=== PATIENT | female | born 1960 | race Caucasian/White ===

== ENCOUNTER 2018-08-31 11:23 | Outpatient (CLI) | payer MEDICARE, MEDICAID ==
[~2018-08-31] VITALS: Ht 170.2 cm; Wt 67.8 kg
[2018-08-31 11:45] VITALS: BP 110/62
[2018-08-31 12:28] LABS: BASOPHILS % (AUTO) 0 % (0-10); EOSINOPHILS # (AUTO) 0.1 10^3/uL (0.0-0.3); EOSINOPHILS % (AUTO) 1 % (0-10); HEMATOCRIT 39 % (35-52); HEMOGLOBIN 13.2 G/DL (11.5-16.0); LYMPHOCYTES # (AUTO) 1.9 X 10^3 (1.0-4.0); LYMPHOCYTES % (AUTO) 25 % (12-44); MEAN CORPUSCULAR HEMOGLOBIN 29 PG (25-34); MEAN CORPUSCULAR HGB CONC 34 G/DL (32-36); MEAN CORPUSCULAR VOLUME 85 FL (80-99); MEAN PLATELET VOLUME 9.1 FL (7.4-10.4); MONOCYTES # (AUTO) 0.5 X 10^3 (0.0-1.0); MONOCYTES % (AUTO) 6 % (0-12); NEUTROPHILS # (AUTO) 5.3 X 10^3 (1.8-7.8); NEUTROPHILS % (AUTO) 68 % (42-75); PLATELET COUNT 312 10^3/uL (130-400); RED CELL DISTRIBUTION WIDTH 17.3 % (10.0-14.5); WHITE BLOOD COUNT 7.8 10^3/uL (4.3-11.0)
[2018-08-31 12:48] LABS: BUN/CREATININE RATIO 10; CALCIUM 9.3 MG/DL (8.5-10.1); CARBON DIOXIDE 27 MMOL/L (21-32); CHLORIDE 92 MMOL/L (98-107); CREATININE SERUM 0.72 MG/DL (0.60-1.30); GFR ESTIMATED > 60; GLUCOSE 97 MG/DL (70-105); POTASSIUM 4.3 MMOL/L (3.6-5.0); SODIUM 128 MMOL/L (135-145)
[2018-08-31] MEDS ORDERED: LEVO112T55 PO (15:01)
[2018-08-31] MEDS ORDERED: VERA80TA2 PO (15:01)
[2018-08-31] MEDS ORDERED: DOCU-143 PO (15:01)
[2018-08-31] MEDS ORDERED: MULT-166 PO (15:01)
[2018-08-31] MEDS ORDERED: OMEP40CA36 PO (15:01)
[2018-08-31] MEDS ORDERED: FLUT16SP22 NS (15:01)
[2018-08-31] MEDS ORDERED: TOLT4CAP13 PO (15:01)
[2018-08-31] MEDS ORDERED: BUSP10TA95 PO (15:01)
[2018-08-31] MEDS ORDERED: OMEP20CA12 PO (15:01)
[2018-08-31] MEDS ORDERED: BACL20TA PO (15:01)
[2018-08-31] MEDS ORDERED: ALBU2.5V4 NEB (15:19)
[2018-08-31] MEDS ORDERED: TRAM50TA2 PO (15:19)
[2018-08-31] MEDS ORDERED: ALEN70TA5 PO (15:19)
[2018-08-31] MEDS ORDERED: CLOZ100T7 PO ×2 (15:19)
[2018-08-31] MEDS ORDERED: CYAN5000 PO (15:19)
[2018-08-31] MEDS ORDERED: ACET-2267 PO (15:19)
[2018-08-31] MEDS ORDERED: POLY15DR14 OU (15:19)
[2018-08-31] MEDS ORDERED: CETI10TA17 PO (15:19)
[2018-08-31] MEDS ORDERED: METO5TAB2 PO (15:19)
[2018-08-31] MEDS ORDERED: MELO15TA39 PO (15:19)
[2018-08-31] MEDS ORDERED: SENN-109 PO (15:19)
[2018-08-31] MEDS ORDERED: CITA10TA7 PO (15:19)
[2018-08-31] MEDS ORDERED: LINA72CA PO (15:19)
[2018-08-31] MEDS ORDERED: PREG150C PO (15:19)
[2018-08-31] MEDS ORDERED: MIRA50TA PO (15:19)
[2018-08-31] MEDS ORDERED: RT-ALBUINH INH (15:19)
[2018-09-02] MEDS ORDERED: HYDR-3584 PO (13:36)
[2018-09-02] MEDS ORDERED: NA P133E22 RC (13:36)
[2018-09-02] MEDS ORDERED: D-ME118S7 PO (14:40)
[2018-09-02] MEDS ORDERED: SIME125T59 PO (14:40)
[2018-09-02] MEDS ORDERED: MUPI15CR11 TP (14:40)
[2018-09-02] MEDS ORDERED: MAGN296S50 PO (14:40)
== END 2018-08-31 14:00 | disposition home or self-care (01) ==
LOC: PREOP 11:23
PROVIDERS: ATTEND Orthopaedic Surgery
DX: Z01.812 Encounter for preprocedural laboratory examination (principal); M48.02 Spinal stenosis, cervical region
CPT/HCPCS: 36415; 80048; 85025; 86850; 86900; 86901; 87081

== ENCOUNTER 2018-09-06 07:04 | Inpatient (IN) | payer MEDICARE, MEDICAID ==
--- NOTE | 2018-09-01 13:06 | NUR ---
PATIENT BROUGHT IN PRINTED LIST OF REFILLS SINCE 05-24-18 FROM [employer] IN [place]. I TRIED TO CALL HER TO GO OVER THAT LIST AND VERIFY WHAT SHE TAKES AND HOW SHE TAKES THEM HOWEVER I TALKED TO HER TWICE AND BOTH TIMES SHE DID NOT HAVE TIME TO GO OVER IT WITH ME. I ENTERED WHAT HAS BEEN FILLED RECENTLY BUT HAVE NOT REVIEWED IT UNTIL I CAN VERIFY WITH PATIENT. SHE STATES SHE WILL CALL ME IN THE MORNING OF 09-01-18. I WILL UPDATE WHEN I AM ABLE TO SPEAK WITH HER. Addendum: 09/02/18 at 1350 by TK [facility]AV[facility] PATIENT HAS NOT CALLED ME BACK. I AM LEAVING ALL THE MEDICATIONS ENTERED ONTO THE MED REC FROM THE LIST FROM [employer], DATE RANGE 05-24-18 TO 08-30-18. [employer] [facility] FILLED: 08-24-18 FLEET ENEMA PRN 08-24-18 ARTIFICIAL TEARS ONE OR TWO DROPS IN AFFECTED EYE 08-24-18 FLONASE 1 SPRAY EACH NOSTRIL DAILY #16 08-24-18 TYLENOL 500MG 2 Q8H PRN #120 08-19-18 CLOZAPINE 100MG 1AM AND 3 HS #120 08-16-18 VENTOLIN 2 PUFFS Q6H PRN 08-06-18 TOLTERODINE TARTRATE ER 4MG DAILY #30 08-04-18 COLACE 100MG HS #30 08-03-18 HYDROXYZINE HCL 10MG TID PRN ANXIETY #30 08-03-18 OMEPRAZOLE 40MG DAILY #30 08-03-18 MTV W/ MINERALS DAILY #30 08-03-18 SENNA DOCUSATE 8.6-50 3 DAILY #90 08-03-18 ALENDRONATE 70MG WEEKLY #4 08-03-18 METOCLOPRAMIDE 5MG 1 ACHS #120 08-03-18 LEVOTHYROXINE 112MG DAILY #30 08-03-18 BUSPIRONE 10MG TID #90 08-03-18 CITALOPRAM 10MG DAILY #30 08-03-18 VITAMIN B12 5000MCG DAILY #30 08-03-18 CETIRIZINE 10MG DAILY #30 08-03-18 VERAPAMIL 80MG 1/2 DAILY #15 08-03-18 LINZESS 72MCG DAILY #30 08-03-18 BACLOFEN 20MG TID #90 08-03-18 MYRBETRIQ 50MG DAILY #30 08-03-18 MELOXICAM 15MG DAILY #30 08-02-18 TRAMADOL 50MG HS #08-02-18 LYRICA 150MG BID #60 06-02-18 ALBUTEROL 0.083% Q4H PRN Addendum: 09/02/18 at 1452 by TK [facility]AV[facility] PATIENT CALLED BACK AT THIS TIME, WE WENT OVER THE LIST FROM PANIAGUA JOSE DAVID AND SHE VERIFIED HOW SHE TAKES THEM. I ADDED THE FOLLOWING MEDICATIONS THAT SHE STATES SHE DOES HAVE ON HAND IF NEEDED: 08-04-18 MUPIROCIN OINT APPLY BID TO EAR (STATES SHE APPLY NASALLY) 06-11-18 PROMETHAZINE DM 6.25-15MG/5ML 5ML Q6H PRN #180 SHE STATES HER LYRICA IS PRESCRIBED BID HOWEVER SHE HAS DECREASED IT TO ONE AT HS ONLY. SHE TAKES HER TRAMADOL ONCE DAILY NEEDED BUT NOT NECESSARILY AT HS. SHE TAKES HER ALENDRONATE ON FRIDAYS. SHE USES MAG CITRATE AND GAS X OTC PRN
[~2018-09-06] VITALS: Ht 170.2 cm; Wt 67.8 kg
[2018-09-06] VITALS (11 sets, daily range): BP systolic 99–157; BP diastolic 55–83
[~2018-09-06 07:04] MED LIST: ACET-2267 PO; ALBU2.5V4 NEB; ALEN70TA5 PO; BACL20TA PO; BUSP10TA95 PO; CETI10TA17 PO; CITA10TA7 PO; CLOZ100T7 PO; CYAN5000 PO; D-ME118S7 PO; DOCU-143 PO; FLUT16SP22 NS; HYDR-3584 PO; LEVO112T55 PO; LINA72CA PO; MAGN296S50 PO; MELO15TA39 PO; METO5TAB2 PO; MIRA50TA PO; MULT-166 PO; MUPI15CR11 TP; NA P133E22 RC; OMEP20CA12 PO; OMEP40CA36 PO; POLY15DR14 OU; PREG150C PO; RT-ALBUINH INH; SENN-109 PO; SIME125T59 PO; TOLT4CAP13 PO; TRAM50TA2 PO; VERA80TA2 PO
[2018-09-06] MEDS: LACTATED RINGERS 1,000 ML IV PRN ×2 (08:05→10:16)
[2018-09-06] MEDS ORDERED: ceFAZolin 2 GM/50 ML NS 50 ML IV ONE (08:15)
[2018-09-06] MEDS ORDERED: CATHETER FLUSH 10 ML SYR IV PRN (08:15)
[2018-09-06] MEDS ORDERED: BACITRACIN 100,000 UNIT/NS 1000 ML POUR BOTTLE IR ONE ×2 (08:15)
[2018-09-06] MEDS ORDERED: THROMBIN 5,000 UNIT (RECOTHROM) VIAL ONE (08:33)
[2018-09-06] MEDS ORDERED: proPOfol 200 MG/20 ML (DIPRIVAN) VIAL IV ONE ×3 (08:58→10:23)
[2018-09-06] MEDS ORDERED: SUCCINYLCHOLINE INJ 100 MG/5 ML SYR ONE (08:58)
[2018-09-06] MEDS ORDERED: LIDOCAINE PF 2% 5 ML (XYLOCAINE) VIAL ONE (08:58)
[2018-09-06] MEDS ORDERED: SEVOFLURANE (ULTANE) 15 ML INHAL SOLN ONE ×3 (08:58→11:09)
[2018-09-06] MEDS ORDERED: MIDAZOLAM 2 MG/2 ML (VERSED) VIAL ONE (08:59)
[2018-09-06] MEDS ORDERED: fentaNYL INJECTION 100 MCG/2 ML AMP ONE (08:59)
[2018-09-06] MEDS ORDERED: DEXAMETHASONE 10 MG/ML (DECADRON) 1 ML VIAL ONE (09:01)
[2018-09-06] MEDS ORDERED: ONDANSETRON 4 MG/2 ML (SDV) Z0FRAN ONE (09:01)
--- NOTE | 2018-09-06 09:23 | NUR ---
Clammer support provided prior to procedure. pt smiled and welcomed chaplains' presence, stating "I think it is wonderful that they offer this service here." She welcomed prayer; offered prayer for healing, peace, and God's protection. Pt is non-yarsanism Oriental Orthodox.
[2018-09-06] MEDS ORDERED: ROCURONIUM 10 MG/ML 5 ML SYRINGE IV ONE (09:32)
[2018-09-06] MEDS ORDERED: GLYCOPYRROLATE 0.2 MG/ML (ROBINUL) 2 ML VIAL ONE ×2 (09:32→10:48)
[2018-09-06] MEDS ORDERED: PHENYLEPHRINE 100 MCG/ML 10 ML (ANESTHESIA) SYR ONE (10:24)
[2018-09-06] MEDS ORDERED: HYDROmorphone 2 MG/ML VIAL (DILAUDID) ONE ×2 (10:43→12:02)
[2018-09-06] MEDS ORDERED: RT-ALBUTEROL SULF 2.5 MG/3 ML PRE-MIX VIAL INH PRN (11:30)
[2018-09-06] MEDS ORDERED: RT-ALBUTEROL SULF 2.5 MG/3 ML PRE-MIX VIAL IH PRN (11:30)
[2018-09-06] MEDS ORDERED: ACETAMINOPHEN 325 MG TABLET PO PRN (11:45)
[2018-09-06] MEDS ORDERED: morphine INJ 10 MG/ML 1ML (SYR OR VIAL) IVP PRN (11:45)
[2018-09-06] MEDS ORDERED: ONDANSETRON 4 MG (ZOFRAN) ORAL DISSOLVE TAB PO PRN (11:45)
[2018-09-06] MEDS ORDERED: ONDANSETRON 4 MG/2 ML (SDV) Z0FRAN IV PRN (11:45)
--- NOTE | 2018-09-06 12:18 | Diagnostic Imaging Report ---
INDICATION: Fluoroscopy during cervical spine surgery. FINDINGS: Fluoroscopy was provided in the OR during cervical spine surgery. 8 seconds of fluoroscopy was utilized. Images demonstrate postop changes of ACDF at the C5 through C7 levels. The alignment is normal. IMPRESSION: Fluoroscopy during ACDF. Dictated by: Dictated on workstation # [id number]
[2018-09-06] MEDS ORDERED: HYDROmorphone 2 MG/ML VIAL (DILAUDID) IV ONE (12:30)
[2018-09-06] MEDS ORDERED: ONDANSETRON 4 MG/2 ML (SDV) Z0FRAN IVP PRN (12:30)
[2018-09-06] MEDS ORDERED: hydrOXYzine (ATARAX) 10 MG TAB PO PRN (14:45)
[2018-09-06] MEDS ORDERED: ARTIFICAL TEARS 0.4 ML UNIT DOSE (REFRESH PLUS) OU PRN (15:00)
[2018-09-06] MEDS ORDERED: SIMETHICONE 80 MG (MYLICON) CHEW PO PRN (15:00)
[2018-09-06] MEDS: oxyCODONE/APAP 5/325MG (PERCOCET 5) TABLET PO PRN (15:15)
[2018-09-06] MEDS: busPIRone 10 MG (BUSPAR) TAB PO SCH ×2 (15:20→21:14)
[2018-09-06] MEDS: ceFAZolin INJECTION 1,000 MG in WATER (STERILE) FOR INJECTION 10 ML IV SCH ×3 (15:53→23:29)
[2018-09-06] MEDS ORDERED: METOCLOPRAMIDE 5 MG (REGLAN) TAB PO SCH (16:00)
[2018-09-06] MEDS ORDERED: METOCLOPRAMIDE 5 MG (REGLAN) TAB PO PRN (16:45)
[2018-09-06] MEDS ORDERED: CLOZAPINE 300 MG PO SCH (21:00)
[2018-09-06] MEDS: cloZAPine 100 MG (CLOZARIL) TAB PO SCH (21:14)
[2018-09-06] MEDS: DOCUSATE SODIUM 100 MG (COLACE) CAP PO SCH (21:14)
[2018-09-06] MEDS: PREGABALIN 75 MG (LYRICA) CAP PO SCH (21:14)
[2018-09-06] MEDS: BACLOFEN 10 MG (LIORESAL) TAB PO SCH (21:15)
--- NOTE | 2018-09-06 21:36 | OPERATIVE REPORT ---
DATE OF SERVICE: 09/06/2018 SURGEON: Nikki Ragland DO SLP TEACHER: LAUREANO Kumar. This is a medically necessary procedure. The metallurgical laboratory assistant was necessary for retraction of vital neurovascular structures. Without an metallurgical laboratory assistant, the procedure would not be possible. PREOPERATIVE DIAGNOSES: 1. Cervical radiculopathy. 2. Cervical spinal stenosis (bony, foraminal). POSTOPERATIVE DIAGNOSES: 1. Cervical radiculopathy. 2. Cervical spinal stenosis (bony, foraminal). PROCEDURE PERFORMED: 1. C5-C6, C6-C7 anterior cervical diskectomy and fusion. 2. Application of titanium interbody cage, C5-C6, C6-C7. 3. Application of anterior instrumentation, C5-C6, C6-C7. 4. Use of human Allograft for spine. 5. Use of local bone autograft. COMPLICATIONS: None. SPECIMEN SENT: None. DRAIN PLACED: Augusto-Seaman. ANESTHESIA: General endotracheal tube anesthesia with local anesthetic. HISTORY OF PRESENT ILLNESS: The patient is a very pleasant 58-year-old female who presented to me with severe radiating Cervical radiculopathy pain. She had an MRI demonstrating spinal stenosis at C5-C6 and C6-C7 with bilateral neural foraminal stenosis, she did wish to proceed with surgery as she had failed all conservative measures. OPERATION: The patient was identified by name on wrist band in the preoperative holding area. Her operative site was signed, consent was signed. SCDs were placed. Neuro monitoring was hooked up and antibiotics were started. She was taken to the operating room theater and placed under general endotracheal tube anesthesia and then transferred to the operating room table in the supine position. She was prepped and draped in the usual sterile fashion. Formal timeout was conducted. An incision was then made over the medial aspect of the left sternocleidomastoid. I proceeded with a standard anterior cervical approach to the cervical spine. I placed Marion pin distraction across C5-C6 and placed a self-retaining retractor. I verified my level under lateral x-ray. I performed an annulotomy followed by complete diskectomy. I took down the posterior longitudinal ligament and I did bilateral foraminotomies. I then sized and chose the appropriate titanium interbody cage packed with human allograft and local bone autograft and I seated it in the midline position. I then repeated this diskectomy at C6-C7. I now had two interbodies in place. I obtained the appropriate length plate placed in the midline position. I placed screws through the plate into the body of C5, C6 and then C7. I finally tightened all screws. AP and lateral x-ray demonstrated good position of the hardware, placed a Augusto-Seaman drain alongside the plate. I irrigated the wound, maintained hemostasis. Obtained final x-rays and closed the wound utilizing 3-0 Vicryl followed by running 3-0 subcuticular stitch. I applied dressings and took the patient in the supine position to the PACU where she awoke without incident. She tolerated the procedure well. PLAN: At this time is to admit the patient for IV antibiotics, IV pain control and postop monitoring. I have her out of bed on postop day #1. She will wear a brace while out of bed. Please note instrumentation utilized was Nu[employer] for everything. Job ID: [id number] DocumentID: [id number] Dictated Date: 09/06/2018 14:14:45 Clammer Date: 09/06/2018 21:35:13 Dictated By: NIKKI RAGLAND DO
[2018-09-07 00:16] VITALS: BP 116/60
[2018-09-07 04:00] VITALS: BP 142/69
[2018-09-07] MEDS: LEVOTHYROXINE 112 MCG (LEVOTHROID) TAB PO SCH (06:43)
[2018-09-07] MEDS: ceFAZolin INJECTION 1,000 MG in WATER (STERILE) FOR INJECTION 10 ML IV SCH (06:44)
--- NOTE | 2018-09-07 07:21 | Anesthesia-General Post-Op ---
General Patient Condition Mental Status/LOC: Same as Preop Cardiovascular: Satisfactory Nausea/Vomiting: Absent Respiratory: Satisfactory Pain: Controlled Complications: Absent Post Op Complications Complications None Follow Up Care/Instructions Patient Instructions None needed. Anesthesia/Patient Condition Patient Condition Patient is doing well, no complaints, stable vital signs, no apparent adverse anesthesia problems. No complications reported per nursing. D/C home per [facility] Criteria: Yes NANI PEDRO CRNA Sep 07, 2018 07:21
--- NOTE | 2018-09-07 07:40 | Discharge Summary ---
Diagnosis/Chief Complaint Date of Admission Sep 06, 2018 at 07:04 Date of Discharge Discharge Date: Sep 07, 2018 Discharge Time: 07:38 Admission Diagnosis Admission Diagnosis cervical stenosis Discharge Diagnosis same Reason Hospital Visit cervical stenosis Discharge Summary Procedures: C5-7 ACDF Discharge Physical Examination Allergies: Coded Allergies: aripiprazole (Unverified Adverse Reaction, Mild, 09/06/18) "MIND RACES" azithromycin (Verified Adverse Reaction, Mild, MAKES HER SLEEPY, 08/31/18) fluoxetine (Verified Adverse Reaction, Mild, POOR CONCENTRACTION/INCREASED ANXIETY, 08/31/18) nortriptyline (Unverified Adverse Reaction, Mild, 09/06/18) "MIND RACES" paroxetine (Unverified Adverse Reaction, Mild, 09/06/18) "MIND RACES" sertraline (Verified Adverse Reaction, Mild, ANXIETY, MIND RACES, 08/31/18) Vitals & I&Os Vital Signs Date Time Temp Pulse Resp B/P (MAP) Pulse Ox O2 Delivery O2 Flow Rate FiO2 09/07/18 05:56 Nasal Cannula 3.00 09/07/18 04:00 97.4 95 20 142/69 (93) 93 Hospital Course under went acdf. did well. stable for d/c home POD 1 Discharge Condition at discharge stable Instructions to patient/family Please see electronic discharge instructions given to patient. Discharge Medications Reviewed and agree with Discharge Medication list on patient's Discharge Instruction sheet Clinical Quality Measures DVT/VTE Risk/Contraindication: Risk Factor Score Per Nursin RFS Level Per Nursing on Admit: 3=High NIKKI ANDINO DO Sep 07, 2018 07:39
[2018-09-07 08:00] VITALS: BP 139/65
[2018-09-07] MEDS ORDERED: NON-FORMULARY MEDICATION 1 EA EA (Mirabegron (Myrbetriq) 50 MG) PO SCH (09:00)
[2018-09-07] MEDS ORDERED: NON-FORMULARY MEDICATION 1 EA EA (Linaclotide (Linzess) 72 MCG) PO SCH (09:00)
[2018-09-07] MEDS ORDERED: CLOZAPINE 100 MG PO SCH (09:00)
[2018-09-07] MEDS: cloZAPine 100 MG (CLOZARIL) TAB PO SCH ×2 (09:03→21:03)
[2018-09-07] MEDS: PANTOPRAZOLE 40 MG (PROTONIX) TAB PO SCH (09:03)
[2018-09-07] MEDS: SENNA W/DOCUSATE (SENOKOT S) TABLET PO SCH (09:04)
[2018-09-07] MEDS: BACLOFEN 10 MG (LIORESAL) TAB PO SCH ×3 (09:04→21:04)
[2018-09-07] MEDS: VERAPAMIL 80 MG (ISOPTIN) TAB PO SCH (09:04)
[2018-09-07] MEDS: LORATADINE (CLARITIN) 10 MG TAB PO SCH (09:04)
[2018-09-07] MEDS: busPIRone 10 MG (BUSPAR) TAB PO SCH ×3 (09:04→21:05)
[2018-09-07] MEDS: TOLTERODINE LA 4 MG (DETROL) CAP PO SCH (09:04)
[2018-09-07] MEDS: FLUTICASONE NASAL SPRAY (FLONASE) 16 GM BTL NS SCH (09:05)
--- NOTE | 2018-09-07 09:48 | Physical Therapy Evaluation ---
PT Evaluation-General Medical Diagnosis Admission Date Sep 06, 2018 at 07:04 Medical Diagnosis: cervical stenosis Onset Date: Sep 06, 2018 Therapy Diagnosis Therapy Diagnosis: debility Height/Weight Height (Feet): 5 Height (Inches): 7.00 Weight (Pounds): 149 Weight (Ounces): 6.0 Precautions Precautions/Isolations: Fall Prevention Weight Bear Status Right Lower Extremity: Right Full Weight Bearing Left Lower Extremity: Left Full Weight Bearing Referral Physician: Obie Reason for Referral: Evaluation/Treatment Medical History Current History s/p C5-7 ACDF Reviewed History: Yes Social History Home: Apartment Current Living Status: Alone Entry Into Home: Level Entry Prior/Core FIM Prior Level of Function Therapy Code Descriptions/Definitions Functional [place] Measure: 0=Not Assessed/NA 4=Minimal Assistance 1=Total Assistance 5=Supervision or Setup 2=Maximal Assistance 6=Modified [place] 3=Moderate Assistance 7=Complete [place] Therapy Quality Codes: 6 Independent with activity with or without an assistive device 5 Patient requires set up or clean up by helper. Patient completes activity by themselves 4 Supervision or touching assist (CGA). [place] provide cues , steadying assist 3 The helper provides less than half the effort to complete the activity 2 The helper provides more than half the effort to complete the activity 1 Dependent. The helper does all the effort to complete an activity 7 Patient refused to complete or attempt activity 9 The patient did not perform the activity before the current illness or injury 88 Not attempted due to Medical conditions or safety concerns Functional Abilities and Goals: Independent: Patient completed the activities by him/herself, with or without an assistive device, with no assistance from a helper. Needed Some Help: Patient needed partial assistance from another person to complete activities. Dependent: A helper completed the activities for the patient. Unknown: Not Applicable: Bed Mobility: 7 Transfers (B,C,W/C) (FIM): 7 Gait: 7 Stairs: 7 Indoor Mobility (Ambulation): Independent Stairs: Independent Prior Devices Use: None PT Evaluation-Current Subjective Patient agrees to PT. No c/o. Pain Numeric Pain Scale: 5-Moderate Pain Location: Posterior Location Body Site: Neck Pain Description: Acute Objective Patient Orientation: Normal For Age Problem Solving: Fair Attachments: Oxygen, Drains ROM/Strength ROM Lower Extremities bilateral LE WFL Strength Lower Extremities 4/5 grossly bilaterally Integumentary/Posture Integumentary refer to nursing notes Bowel Incontinence: No Bladder Incontinence: No Posture WFL Neuromuscular (Tone, Coordination, Reflexes) grossly intact Sensory Vision: Wears Glasses Hearing: Functional Sensation Right Lower Extremit: Intact Sensation Left Lower Extremity: Intact Transfers Therapy Code Descriptions/Definitions Functional [place] Measure: 0=Not Assessed/NA 4=Minimal Assistance 1=Total Assistance 5=Supervision or Setup 2=Maximal Assistance 6=Modified [place] 3=Moderate Assistance 7=Complete [place] Transfers (B, C, W/C) (FIM): 7 Scootin Rollin Supine to/from Sit: 7 Sit to/from Stand: 7 Gait Mode of Locomotion: Walk Anticipated Mode of Locomotion: Walk Gait (FIM): 7 Distance (FIM): 3=150 ft Distance: 400' Gait Level of Assist: 7 Gait Assistive Device: None Comments/Gait Description safe and functional Balance Sitting Static: Normal Sitting Dynamic: Normal Standing Static: Normal Standing Dynamic: Normal Assessment/Needs 58 y.o. female, is currently at [facility] with all gross motor skills safely and has been instructed on how to don cervical collar. Patient has also been instructed to ambulate PRN in hallway prior to dismissal. No skilled therapy indicated. Rehab Potential: Good PT Plan Treatment/Plan Treatment Plan: Discontinue PT, goals met Treatment Plan: Other Treatment Duration: Sep 07, 2018 Frequency: 1 time per week Estimated Hrs Per Day: .25 hour per day Patient and/or Family Agrees t: Yes Discharge Recommendations Therapy D/C Recommendations: Home Independently Time/GCodes Time In: 836 Time Out: 846 Total Billed Treatment Time: 10 Total Billed Treatment 1 visit EVLow 10 min JONES HOWELL PT Sep 07, 2018 09:48
--- NOTE | 2018-09-07 09:54 | Diagnostic Imaging Report ---
EXAMINATION: Cervical spine at 0820 hours. INDICATION: Postop fusion. TECHNIQUE: AP and lateral views were obtained. FINDINGS: As noted on the fluoroscopic exam performed on 09/06/2018, there has been a fusion of C5, C6, and C7. The orthopedic hardware appears to be in good position. There is no fracture or acute bony abnormality evident. There is mild retropharyngeal edema anterior to the fusion site. The lung apices are clear. IMPRESSION: The anterior fusion of C5, C6, and C7 appears stable. There is mild retropharyngeal edema but there is no acute abnormality identified otherwise. Dictated by: Dictated on workstation # [id number]
[2018-09-07] MEDS: HYDROcodone/APAP 5 MG/325 MG (LORTAB) TAB PO PRN ×2 (11:08→21:08)
--- NOTE | 2018-09-07 11:08 | Occupational Therapy Eval ---
OT Evaluation-General/PLF Medical Diagnosis Admission Date Sep 06, 2018 at 07:04 Medical Diagnosis: cervical stenosis Onset Date: Sep 06, 2018 Therapy Diagnosis Therapy Diagnosis: decreased self care skills Height/Weight Height (Feet): 5 Height (Inches): 7.00 Weight (Pounds): 149 Weight (Ounces): 6.0 Precautions Precautions/Isolations: Fall Prevention Comments cervical collar Referral Physician: Obie Medical History Current History pt s/p C5-6, C6-7 ACDF Social History Home: Apartment Current Living Status: Alone Entry Into Home: Level Entry ADL-Prior Level of Function Therapy Code Descriptions/Definitions Functional [place] Measure: 0=Not Assessed/NA 4=Minimal Assistance 1=Total Assistance 5=Supervision or Setup 2=Maximal Assistance 6=Modified [place] 3=Moderate Assistance 7=Complete [place] Therapy Quality Codes: 6 Independent with activity with or without an assistive device 5 Patient requires set up or clean up by helper. Patient completes activity by themselves 4 Supervision or touching assist (CGA). [place] provide cues , steadying assist 3 The helper provides less than half the effort to complete the activity 2 The helper provides more than half the effort to complete the activity 1 Dependent. The helper does all the effort to complete an activity 7 Patient refused to complete or attempt activity 9 The patient did not perform the activity before the current illness or injury 88 Not attempted due to Medical conditions or safety concerns Functional Abilities and Goals: Independent: Patient completed the activities by him/herself, with or without an assistive device, with no assistance from a helper. Needed Some Help: Patient needed partial assistance from another person to complete activities. Dependent: A helper completed the activities for the patient. Unknown: Not Applicable: ADL PLOF Comments Pt reports completing self care and mobility tasks independently. Has a certified home health aide 5 hrs/wk to assist with housework/laundry. Pt does not drive, states she uses a taxi service. Self Care: Independent DME/Equipment: Grab Bars, Shower Drive Self: No OT Current Status Subjective Pt sitting in chair, agrees to therapy. Pt reports 7/10 neck pain. Mental Status/Objective Patient Orientation: Person, Place, Situation Attachments: Drains, Oxygen Current Glasses/Contacts: Yes Dentures/Partials: Yes Hand Dominance: Right Upper Extremity ROM grossly functional Upper Extremity Coordination Intact Upper Extremity Strength MMT not completed secondary to neck surgery ADL-Treatment ADL-Current Pt sitting in chair, declined dressing or bathing at this time. Educated pt on ADL completion and safety. Instructed on donning cervical collar, requires cues to complete. Pt states she plans to d/c home today and will have someone with her for the first 2 days. If pt is not discharged, will see pt for ADL assessment in future session. Pt sitting in chair with needs met after session. Therapy Code Descriptions/Definitions Functional [place] Measure: 0=Not Assessed/NA 4=Minimal Assistance 1=Total Assistance 5=Supervision or Setup 2=Maximal Assistance 6=Modified [place] 3=Moderate Assistance 7=Complete [place] Therapy Quality Codes: 6 Independent with activity with or without an assistive device 5 Patient requires set up or clean up by helper. Patient completes activity by themselves 4 Supervision or touching assist (CGA). [place] provide cues , steadying assist 3 The helper provides less than half the effort to complete the activity 2 The helper provides more than half the effort to complete the activity 1 Dependent. The helper does all the effort to complete an activity 7 Patient refused to complete or attempt activity 9 The patient did not perform the activity before the current illness or injury 88 Not attempted due to Medical conditions or safety concerns Education OT Patient Education: Rehab process, Safety issues Teaching Recipient: Patient Teaching Methods: Discussion OT Short Term Goals Short Term Goals 1=Demonstrate adherence to instructed precautions during ADL tasks. 2=Patient will verbalize/demonstrate understanding of assistive devices/modifica tions for ADL. 3=Patient will improve strength/tolerance for activity to enable patient to perform ADL's. OT Asbestos Worker Helper Goals Detention Goals Time Frame: Sep 11, 2018 Bathing(FIM): 5 Upper Body Dressing(FIM): 6 Lower Body Dressing(FIM): 6 Toileting(FIM): 6 Toilet/Commode Transfer(FIM): 6 Additional Goals: 1-Demonstrate ADL Tasks, 2-Verbalize Understanding, 3- ImproveStrength/Lane 1=Demonstrate adherence to instructed precautions during ADL tasks. 2=Patient will verbalize/demonstrate understanding of assistive devices/modifications for ADL. 3=Patient will improve strength/tolerance for activity to enable patient to perform ADL's. OT Education/Plan Problem List/Assessment Pt s/p cervical surgery. If pt does not discharge today, will see pt for skilled ADL training and home safety education. Discharge Recommendations Plan/Recommendations: Continue POC Treatment Plan/Plan of Care Patient would benefit from OT for education, treatment and training to promote independence in ADL's, mobility, safety and/or upper extremity function for ADL's. Plan of Care: ADL Retraining Treatment Duration: Sep 11, 2018 Frequency: 5 times per week Estimated Hrs Per Day: .25 hour per day Rehab Potential: Good Time/GCodes Start Time: 09:42 Stop Time: 10:05 Total Time Billed (hr/min): 23 Billed Treatment Time 1 visit, SJ(23minutes) JYOTI CRUZ OT Sep 07, 2018 11:08
[2018-09-07 12:00] VITALS: BP 130/60
[2018-09-07 16:00] VITALS: BP 96/64
[2018-09-07 20:00] VITALS: BP 132/78
--- NOTE | 2018-09-07 20:13 | NUR ---
THIS RN NOTIFIED LAUREANO ANDREWS OF PT REQUESTING COUGH SYRUP AND WHEEZES TO BILAT. BASES VIA TELEPHONE. BEAU ORDERED PHENERGAN WITH CODEINE 5 ML Q 4 PRN AND AP AND LATERAL CHEST X-RAY STAT.
--- NOTE | 2018-09-07 20:26 | NUR ---
PT TAKEN FOR CHEST X-RAY. ACCOMPANIED BY STAFF VIA WHEELCHAIR ON 4 L OF PORTABLE O2 VIA NC.
[2018-09-07] MEDS ORDERED: PROMETHAZINE/ CODEINE SYRUP 5 ML UDC PO PRN (20:45)
[2018-09-07] MEDS: PREGABALIN 75 MG (LYRICA) CAP PO SCH (21:05)
[2018-09-07] MEDS: DOCUSATE SODIUM 100 MG (COLACE) CAP PO SCH (21:05)
--- NOTE | 2018-09-07 21:21 | Diagnostic Imaging Report ---
INDICATION: Cough, wheezing, thick brown sputum status post cervical spine surgery yesterday with drainage EXAMINATION: Two-view chest 09/07/2018 FINDINGS: Postoperative findings noted in the visualized cervical spine. There is a partially imaged tubular structure along the left chest, its proximal components are not seen, this likely overlies the patient but clinical correlation is recommended. DIRECTOR LAW ENFORCEMENT shunt is possible but again is not seen proximally. There is a density left lung base likely a calcified granuloma. Heart is unremarkable. Pulmonary vasculature normal. Coarsened chronic findings in the lungs. Minimal bibasilar atelectasis possible. No effusions, no pneumothorax. IMPRESSION: 1. Chronic findings throughout the lungs with mild bibasilar atelectasis likely. If symptoms persist, followup performed. Dictated by: Dictated on workstation # [id number]
[2018-09-08 00:59] VITALS: BP 114/68
[2018-09-08 04:45] VITALS: BP 104/63
[2018-09-08] MEDS: LEVOTHYROXINE 112 MCG (LEVOTHROID) TAB PO SCH (05:30)
[2018-09-08] MEDS ORDERED: HYDR-4196 PO (06:37)
--- NOTE | 2018-09-08 06:39 | Discharge Inst-Simple/Standard ---
Discharge Inst-Standard Discharge Medications New, Converted or Re-Newed RX: RX on Chart Patient Instructions/Follow Up Plan of Care/Instructions/FU: wear collar when up dont bend lift twist push or pull, 5 lb weight restriction no driving keep incision covered, clean and dry follow up in clinic in 2 weeks Activity as Tolerated: No Discharge Diet: Regular Diet Return to The Hospital For: fever chills shortness of breath chest pain JAVI YANEZ Sep 08, 2018 06:39
--- NOTE | 2018-09-08 06:51 | Discharge Summary ---
Diagnosis/Chief Complaint Date of Admission Sep 06, 2018 at 07:04 Date of Discharge Discharge Date: Sep 07, 2018 Discharge Time: 737 Admission Diagnosis Admission Diagnosis cervical stenosis Discharge Diagnosis same Reason Hospital Visit C5-7 ACDF Discharge Summary Hospital Course Was the Problem List Reviewed?: Yes Hospital Course Keely was admitted for acdf for cervical stenosis. She tolerated this well and her post op course was not complicated. Her vs remained stable and pain controlled. She progressed with PT and was dismissed home on pod #2 Procedures None. Discharge Physical Examination Allergies: Coded Allergies: aripiprazole (Unverified Adverse Reaction, Mild, 09/06/18) "MIND RACES" azithromycin (Verified Adverse Reaction, Mild, MAKES HER SLEEPY, 08/31/18) fluoxetine (Verified Adverse Reaction, Mild, POOR CONCENTRACTION/INCREASED ANXIETY, 08/31/18) nortriptyline (Unverified Adverse Reaction, Mild, 09/06/18) "MIND RACES" paroxetine (Unverified Adverse Reaction, Mild, 09/06/18) "MIND RACES" sertraline (Verified Adverse Reaction, Mild, ANXIETY, MIND RACES, 08/31/18) Vitals & I&Os Vital Signs Date Time Temp Pulse Resp B/P (MAP) Pulse Ox O2 Delivery O2 Flow Rate FiO2 09/08/18 04:45 97.8 105 18 104/63 (77) 18 Nasal Cannula 4.00 General Appearance: Alert, Oriented X3 Respiratory: Normal Air Movement Extremities: No Cyanosis, No Edema Skin: No Rashes, No Breakdown Neuro: Normal Gait, Normal Speech, Strength at 5/5 X4 Ext, Sensation Intact Discharge Home Medications Reviewed and agree with Discharge Medication list on patient's Discharge Instruction sheet Instructions to Patient/Family Please see electronic discharge instructions given to patient. Clinical Quality Measures DVT/VTE Risk/Contraindication: Risk Factor Score Per Nursin RFS Level Per Nursing on Admit: 3=High JAVI YANEZ Sep 08, 2018 06:51
[2018-09-08 08:00] VITALS: BP 94/47
[2018-09-08] MEDS: cloZAPine 100 MG (CLOZARIL) TAB PO SCH (08:58)
[2018-09-08] MEDS: PANTOPRAZOLE 40 MG (PROTONIX) TAB PO SCH (08:58)
[2018-09-08] MEDS: SENNA W/DOCUSATE (SENOKOT S) TABLET PO SCH (08:58)
[2018-09-08] MEDS: BACLOFEN 10 MG (LIORESAL) TAB PO SCH (08:58)
[2018-09-08] MEDS: LORATADINE (CLARITIN) 10 MG TAB PO SCH (08:58)
[2018-09-08] MEDS: VERAPAMIL 80 MG (ISOPTIN) TAB PO SCH (08:58)
[2018-09-08] MEDS: busPIRone 10 MG (BUSPAR) TAB PO SCH (08:58)
[2018-09-08] MEDS: TOLTERODINE LA 4 MG (DETROL) CAP PO SCH (08:58)
[2018-09-08] MEDS: FLUTICASONE NASAL SPRAY (FLONASE) 16 GM BTL NS SCH (09:02)
--- NOTE | 2018-09-08 10:03 | NUR ---
CM/SS, respond to consult for transport home via [employer] [place]. Coordinated, Trip #[id number] with a 3 hour window for tile picker. Updated patient and unit RN. Arrangements are that transport will call RN assigned phone upon arrival and staff will escort patient down.
[2018-09-08] MEDS: oxyCODONE/APAP 5/325MG (PERCOCET 5) TABLET PO PRN (11:55)
[2018-09-08 12:00] VITALS: BP 101/51
[2018-09-10] MEDS ORDERED: NON-FORMULARY MEDICATION 1 EA EA (Alendronate Sodium 70 MG) PO SCH (11:30)
== END 2018-09-08 13:10 | disposition home or self-care (01) | DRG 473 ==
LOC: 4TH 07:04 → SURG 07:05 → 4TH 13:18
PROVIDERS: ADMIT Orthopaedic Surgery; ATTEND Orthopaedic Surgery
PROC: 0RT30ZZ Resection of Cervical Vertebral Disc, Open Approach (ICD-10-PCS; 2018-09-06)
PROC: 0RG20A0 Fusion of 2 or more Cervical Vertebral Joints with Interbody Fusion Device, Anterior Approach, Anterior Column, Open Approach (ICD-10-PCS; principal; 2018-09-06 09:19)
DX: M48.02 Spinal stenosis, cervical region (principal); M47.23 Other spondylosis with radiculopathy, cervicothoracic region; M48.061 Spinal stenosis, lumbar region without neurogenic claudication; I10 Essential (primary) hypertension
CPT/HCPCS: 36415; 71046; 72040; 86850; 86900; 86901; 94664; 94760